=== PATIENT | female | born 1945 | race Caucasian/White ===

== ENCOUNTER 2021-08-18 11:23 | Observation (INO) | payer OTHER, BC ==
--- OUTSIDE RECORDS SUMMARY | 2021-08-18 11:34 | XMS REPORT | Continuity of Care Document ---
:1945 Author Organization [facility] t Address [address] [place] [address] Care Team Providers Name Role Phone PACO ESTUARDO Primary Care Physician Unavailable Daphne ROJAS, L Attending Clinician Erika ESCOBAR Attending Clinician Unavailable Payers Payer Name Policy Type Policy Number Effective Date Expiration Date S ource Problems Condition Condition Condition Status Onset Resolution Last Treating Co mments Source Name Details Category Date Date Treatment Clinician Date Obesity Obesity Disease Active Univers (BMI (BMI 6-02 ity of 30-39.9) 30-39.9) 00:00: Medical [employer] Right knee Right knee Disease Active U nivers pain pain 2-22 ity of 00:00: Medical Branch Allergies, Adverse Reactions, Alerts Allergy Allergy Status Severity Reaction(s) Onset Inactive Treating Comm ents Source Name Type Date Date Clinician ACETAMIN DRUG Active High Other-Cmnt 2020-08 Univ ers OPHEN INGREDI 0-11 ity of 00:00: [place] 00 Medical Branch Acetamin Propensi Active Other - See 2020-08 enlarges t Univers ophen ty to comments 0-11 Liver ity of adverse 00:00: [place] reaction 00 Medical s Branch IRON DRUG Active Hives Univers INGREDI 2-16 ity of 00:00: [place] 00 Medical Branch Iron Propensi Active Hives Univers ty to 2-16 ity of adverse 00:00: [place] reaction 00 Medical s Branch Social History Social Habit Start Date Stop Date Quantity Comments Source Exposure to Not sure [facility] SARS-CoV-2 (event) Medica l Branch Tobacco use and 2016-10-18 2016-10-18 Never used Applyful tad [facility] exposure 00:00:00 00:00:00 Medical Branch Sex [birth year] Univers tad [facility] 00:00:00 00:00:00 Medical Branch Smoking Status Start Date Stop Date Source Never smoker [facility] Branch Medications Ordered Filled Start Stop Current Ordering Indication Dosage Frequency Signature Comments Components Source Medication Medication Date Date Medication? Clinician (SIG) Name Name methylPREDN 2020-08 Yes [id number] 84mg Take 21 Univers ISolone 1-08 tablets by ity of (MEDROL, 00:00: mouth [place] ROD,) 4 mg 00 SEE-INSTRU Med ical tablets CTIONS. Branch follow package directions methylPREDN 2020-08 Yes [id number] 84mg Take 21 Univers ISolone 1-08 tablets by ity of (MEDROL, 00:00: mouth [place] ROD,) 4 mg 00 SEE-INSTRU Med ical tablets CTIONS. Branch follow package directions Diclofenac 2020-08 Yes [id number] Apply to Univers Sodium 0-11 area(s) 4 ity of (VOLTAREN) 00:00: (four) [place] 1 % gel 00 times Medical daily. Branch Diclofenac 2020-08 Yes [id number] Apply to Univers Sodium 0-11 area(s) 4 ity of (VOLTAREN) 00:00: (four) [place] 1 % gel 00 times Medical daily. Branch CYANOCOBALA Yes Inject as Univers MIN, 6-14 directed. ity of VITAMIN 13:44: [place] B-12, (B-12 32 Medical KIT Branch INJECTION) acetaminoph Yes 1{tbl} Take 1 Un kiesha en-codeine 6-14 tablet by ity of 300-30 mg 13:44: mouth [place] tablet 32 every 4 Medical (four) Branch hours as needed. CYANOCOBALA Yes Inject as Univers MIN, 6-14 directed. ity of VITAMIN 13:44: [place] B-12, (B-12 32 Medical KIT Branch INJECTION) acetaminoph Yes 1{tbl} Take 1 Un kiesha en-codeine 6-14 tablet by ity of 300-30 mg 13:44: mouth [place] tablet 32 every 4 Medical (four) Branch hours as needed. acetaminoph Yes 1{tbl} Take 1 Un kiesha en-codeine 6-02 tablet by ity of (TYLENOL-CO 00:00: mouth [place] DEINE #3) 00 every 6 Medical 300-30 mg (six) Branch tablet hours as needed for Pain (scale 4-6) (for cough). acetaminoph 2016-0 Yes 1{tbl} Take 1 Un kiesha en-codeine 6-02 tablet by ity of (TYLENOL-CO 00:00: mouth [place] DEINE #3) 00 every 6 Medical 300-30 mg (six) Branch tablet hours as needed for Pain (scale 4-6) (for cough). diclofenac 2016- Yes 75mg Take 1 Unive rs 75 mg EC 5-16 tablet by ity of tablet 00:00: mouth 2 (two) Medical times [employer] daily with meals. diclofenac 2017-0 Yes 75mg Take 1 Unive rs 75 mg EC 5-16 tablet by ity of tablet 00:00: mouth 2 [place] (two) [facility] times [employer] daily with meals. Vital Signs Vital Name Observation Time Observation Value Comments Source Body height 2021-07-18 20:15:00 160 cm [facility] Body weight 2021-07-18 20:15:00 91.173 kg [facility] BMI 2021-07-18 20:15:00 35.61 kg/m2 [facility] Procedures This patient has no known procedures. Encounters Start End Encounter Admission Attending Care Care Encounter Source Date/Time Date/Time Type Type Clinicians Facility Department ID 2021-07-18 2021-07-18 Office Daphne [facility] [id number] [facility] 14:15:00 14:44:23 Visit Victor M [facility] [id number] it y of JAYDA [id number] Lionel as HOMER?BLEA [id number] [address] MEDICAL OFFICE BUILDING 2021-07-18 2021-07-18 Outpatient R DAPHNE [facility] [id number] Univers 14:15:00 14:44:23 VICTOR M tad [facility] Results This patient has no known results.
[2021-08-18] MEDS ORDERED: DIAZEPAM 10 MG/2 ML INJ SYRINGE ONE (12:41)
[2021-08-18] MEDS ORDERED: ONDANSETRON 4 MG/2 ML VIAL ONE ×2 (12:41→13:41)
[2021-08-18 13:32] LABS: Absolute Lymphocytes (CBC) 1.1 K/uL (0.7-4.9); Basophils % 0.7 % (0-1.3); Lymphocytes % 11.9 % (15.3-44.8); MPV 9.2 fL (7.6-11.3); Protime INR 0.93; RBC Red Blood Cell Count 4.31 M/uL (3.86-4.86)
[2021-08-18 13:48] LABS: ALT/SGPT 31 U/L (12-78); AST/SGOT 18 U/L (15-37); Albumin 3.8 g/dL (3.4-5.0); Alkaline Phosphatase 123 U/L (45-117); BUN Blood Urea Nitrogen 11 mg/dL (7-18); Bicarbonate 28 mmol/L (21-32); Bilirubin Direct < 0.1 mg/dL (0-0.2); Bilirubin Total 0.3 mg/dL (0.2-1.0); Glucose Level 110 mg/dL (74-106); Magnesium 2.4 mg/dL (1.8-2.4); NT PRO-BNP 67 pg/mL (<125); Potassium 3.8 mmol/L (3.5-5.1); Protein, Total 8.1 g/dL (6.4-8.2); Sodium Level 140 mmol/L (136-145); Troponin (Emerg Dept Use Only) < 0.02 ng/mL (0.0-0.045)
--- NOTE | 2021-08-18 14:36 | RAD REPORT ---
EXAM DESCRIPTION: Isaías Single View08/18/2021 1:37 pm CLINICAL HISTORY: Dizziness COMPARISON: none FINDINGS: The lungs appear clear of acute infiltrate. The heart is normal size IMPRESSION: No acute abnormalities displayed
--- NOTE | 2021-08-18 14:47 | RAD REPORT ---
EXAM DESCRIPTION: CT - Head Brain Wo Cont - 08/18/2021 2:28 pm CLINICAL HISTORY: Dizziness COMPARISON: None. TECHNIQUE: Computed axial tomography of the head was obtained. IV contrast was not requested. All CT scans are performed using dose optimization technique as appropriate and may include automated exposure control or mA/KV adjustment according to patient size. FINDINGS: An intracranial bleed is not seen . The ventricles are normal in caliber. No extra-axial fluid collection is noted. Fluid within the sphenoid sinus IMPRESSION: No acute intracranial abnormality is seen. If patient's symptoms persist MRI of the bra in would be recommended. Fluid within the sphenoid sinus may indicate an acute sinusitis
--- NOTE | 2021-08-18 15:22 | RAD REPORT ---
EXAM DESCRIPTION: MRI - Brain W/Wo Cont - 08/18/2021 2:53 pm CLINICAL HISTORY: Dizziness COMPARISON: head CT August 17, 2021 TECHNIQUE: Axial, sagittal, and coronal magnetic images of the brain were obtained. 20 cc MultiHance administered intravenously FINDINGS: Very small area of abnormal signal right cerebellum is chronic. No significant abnormal si gnal within the brain. The ventricles are normal in caliber. Diffusion-weighted/ ADC mapping sequences do not demonstrate evidence of an acute infarction. No abnormal enhancement within the brain is seen. An extra-axial fluid collection is not noted. Fluid within the sinuses/mastoids is not seen. Mild mucoperiosteal thickening involves the sinuses IMPRESSION: No acute intracranial abnormality displayed
[2021-08-18] MEDS ORDERED: MECLIZINE HCL 12.5 MG TAB ONE (15:57)
[2021-08-18] MEDS ORDERED: IBUPROFEN 200 MG TAB PO ONE (16:32)
--- NOTE | 2021-08-18 18:54 | ER ---
Nurse's Notes [facility] Name: Saranya Reid Age: 75 yrs Sex: Female : 1945 Arrival Date: 08/18/2021 Time: 11:27 Bed 16 Private MD: Diagnosis: Weakness;Dizziness and giddiness Presentation: 08/18 12:00 Chief complaint: Patient states: Dizziness that began last night with nausea. Pt states ss that it appears as if the room is spinning. Coronavirus screen: Client denies travel out of the [place] in the last 14 days. Ebola Screen: Patient denies exposure to infectious person. Patient denies travel to an Ebola-affected area in the 21 days before illness onset. Initial Sepsis Screen: Does the patient meet any 2 criteria? No. Patient's initial sepsis screen is negative. Does the patient have a suspected source of infection? No. Patient's initial sepsis screen is negative. Risk Assessment: Do you want to hurt yourself or someone else? Patient reports no desire to harm self or others. Onset of symptoms was August 17, 2021. 12:00 Method Of Arrival: Wheelchair ss 12:00 Acuity: ADAMARIS 3 ss Historical: - Allergies: 12:03 Interferons; ss - PMHx: 12:03 Cataract; TIA; ss - PSHx: 12:03 Tonsillectomy; Hysterectomy; Cholecystectomy; Knee repair; ss - Immunization history:: Client reports receiving the 2nd dose of the Covid vaccine. - Social history:: Smoking status: Patient denies any tobacco usage or history of. Screenin:50 Abuse screen: Denies threats or abuse. Nutritional screening: No deficits noted. eo2 Tuberculosis screening: No symptoms or risk factors identified. Fall Risk Fall in past 12 months (25 points). Assessment: 12:30 Reassessment: Pt states she is unable to tolerate laying position for CT and/or MRI. ss 13:47 General: Appears in no apparent distress. comfortable, Behavior is calm, cooperative, eo2 Reports heard of hearing. Pain:. 13:47 Neuro: Level of Consciousness is awake, alert, obeys commands, Oriented to person, eo2 place, time, situation, Reports dizziness, since last night, associated with nausea, denies headache. Cardiovascular: Reports "chest pressure" since she's been in the ER, states "I don't have chest pain" Respiratory: No deficits noted. Denies shortness of breath. GI: Bowel sounds present X 4 quads. Reports nausea, Patient currently denies vomiting. 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 Pt otherwise able to move all extremities. 15:07 Reassessment: Pt reports worsened nausea due to movement while at MRI, now reports eo2 Headache 6/10, states she hasn't had her coffee today, also reports worsening "chest pressure" states "feels like someone's sitting on my chest". Will make provider aware. Patient states symptoms have not improved. 15:13 Reassessment: Spoke with Dr. Hinson about pt's complaints, provider to review results, eo2 no new orders at this time. 15:30 Reassessment: Dr. Hinson at bedside. eo2 18:00 Reassessment: Walk pt per Dr. Hinson, pt reports headache "went away but came back". eo2 18:53 Reassessment: Pt ambulated, noted with unsteady gait, stumbled several times, voiced eo2 feeling off balance, and that gait is not her baseline. Pt verbalized she does not want to go to "[facility]" for admission, Dr. Hinson came to bedside to witness pt ambulate, similar episodes of imbalance upon ambulation. Pt reports ongoing headache, desires to have coffee and eat. Vital Signs: 12:00 BP 160 / 69; Pulse 64; Resp 15; Temp 98.0(TE); Pulse Ox 100% on R/A; Weight 88.45 kg; ss Height 5 ft. 3 in. (160.02 cm); Pain 0/10; 14:07 BP 147 / 94; Pulse 63; Resp 17; Pulse Ox 100% ; Pain 0/10; eo2 15:00 BP 132 / 64; Pulse 63; Resp 15; Pulse Ox 97% ; Pain 6/10; eo2 16:00 BP 149 / 63; Pulse 62; Resp 15; Pulse Ox 97% ; eo2 17:00 BP 147 / 70; Pulse 61; Resp 16; Pulse Ox 97% ; eo2 18:00 BP 146 / 66; Pulse 62; Resp 14; Pulse Ox 100% ; Pain 6/10; eo2 18:07 Pain 5/10; eo2 20:00 BP 125 / 58; Pulse 61; Resp 18; Pulse Ox 99% on R/A; mk 21:00 BP 119 / 51; Pulse 62; Resp 18; Pulse Ox 97% on R/A; mk 12:00 Body Mass Index 34.54 (88.45 kg, 160.02 cm) Vitals: 20:00 Cardiac Rhythm Assessment Regular Sinus rhythm. mk Daniele Coma Score: 20:00 Eye Response: spontaneous(4). Verbal Response: oriented(5). Motor Response: obeys mk commands(6). Total: 15. 21:00 Eye Response: spontaneous(4). Verbal Response: oriented(5). Motor Response: obeys mk commands(6). Total: 15. ED Course: 11:27 Patient arrived in ED. ds1 12:03 Triage completed. ss 12:03 Arm band placed on right wrist. ss 12:05 Chris Hinson MD is Attending Physician. kdr 13:02 Ashley Dia RN is Primary Nurse. eo2 13:37 XRAY Chest (1 view) In Process Unspecified. EDMS 13:50 Patient has correct armband on for positive identification. Placed in gown. Bed in low eo2 position. Call light in reach. Side rails up X 1. Adult w/ patient. campus monitor on. Pulse ox on. NIBP on. Door closed. Noise minimized. Warm blanket given. 13:50 No provider procedures requiring assistance completed. Missed attempt(s): 20 gauge pt eo2 difficult stick, multiple missed attempts, blood collected and drawn from 20g R.AC initially placed but removed as pt reports pain with attempts to flush and line is difficult to flush. 14:07 Inserted saline lock: 20 gauge in right antecubital area, using aseptic technique. eo2 14:[address] Patient moved to MRI via stretcher. eo2 14:28 CT Head Brain wo Cont In Process Unspecified. EDMS 14:46 MRI - Brain W/Wo Cont In Process Unspecified. EDMS 15:01 Patient moved back from MRI. eo2 18:53 Robert Caballero MD is Hospitalizing Provider. kdr 19:10 Report given to Yuko SOLANO. eo2 20:30 Primary Nurse role handed off by Ashley DiaRUSS cs9 20:44 Yuko Vanegas, RUSS is Primary Nurse. 21:49 Patient admitted, IV remains in place. 21:50 RN/PIPE LINE REPAIRER escort patient out of department to inpatient unit. mk Administered Medications: 14:15 Drug: Zofran (Ondansetron) 4 mg Route: IVP; Site: right antecubital; eo2 15:11 Follow up: Response: Nausea is increased eo2 14:15 Drug: Valium (diazepam) 2.5 mg {Note: Per Dr. Hinson, administer 2.5mg Valium, pt eo2 reported claustrophobic for MRI.} Route: IVP; Site: right antecubital; 15:11 Follow up: Response: No adverse reaction eo2 16:09 Drug: Meclizine 25 mg Route: PO; eo2 17:00 Follow up: Response: No adverse reaction eo2 16:33 Drug: Ibuprofen 600 mg Route: PO; ss 18:07 Follow up: Pain 5/10; Response: No adverse reaction eo2 Outcome: 18:53 Decision to Hospitalize by Provider. kdr 21:49 Admitted to Tele 21:49 Condition: good 21:49 Condition: stable 21:49 Instructed on the need for admit. 21:50 Patient left the ED. Signatures: Dispatcher [employer] EDMS Chris Hinson MD MD kdr Sanford, Demi ds1 Melissa Riojas RN RN ss Stanford, Christine cs9 Ashley Dia RN RN eo2 Yuko Vanegas RN RN mk Corrections: (The following items were deleted from the chart) 12:05 12:03 Allergies: Infrom; ss ss 14:30 13:50 Missed attempt(s): 20 gauge pt difficult stick, multiple missed attempts. eo2 eo2 16:35 12:00 BP 160 / 69; Pulse 64bpm; Resp 15bpm; Pulse Ox 100% RA; 88.45 kg; Height 5 ft. 3 ss in.; BMI: 34.5; Pain 0/10; ss 18:07 17:33 Pain 5/10 Adult eo2 eo2
--- NOTE | 2021-08-18 18:54 | EDPHYS ---
Physician Documentation [facility] Name: Saranya Reid Age: 75 yrs Sex: Female : 1945 Arrival Date: 08/18/2021 Time: 11:27 Bed 16 Private MD: ED Physician Chris Hinson HPI: 08/18 18:53 This 75 yrs old Female presents to ER via Wheelchair with complaints of Dizziness, kdr Lightheaded. 17:52 The patient presents with dizziness, generalized weakness, feeling off balance, sense kdr of spinning, vertigo. Onset: The symptoms/episode began/occurred last night. Context: occurred at home, Patient states that she woke up at night with dizziness and then went back to sleep and when she woke up again she was still dizzy. She remained dizzy throughout the day. The dizziness is worse when she lays flat on her back. Otherwise she is able to get comfortable and minimize the dizziness when she is sitting up slightly reclined. Modifying factors: The symptoms are alleviated by closing eyes, holding head still, the symptoms are aggravated by changing position, Laying flat on her back. Associated signs and symptoms: Pertinent positives: chest pain, headache, nausea, vomiting. Severity of symptoms: At their worst the symptoms were moderate incapacitating in the emergency department the symptoms are unchanged. Patient's baseline: Neuro: alert and fully oriented, Motor: no deficits, Ambulation: walks without assistance, Speech: normal, The patient has a previous history of TIA. The patient has not experienced similar symptoms in the past. The patient has not recently seen a physician. Right foot presents to the ED with dizziness and nausea that began last evening. She has not had this kind of dizziness before. She is otherwise been her usual state of health.. Historical: - Allergies: 12:03 Interferons; ss - PMHx: 12:03 Cataract; TIA; ss - PSHx: 12:03 Tonsillectomy; Hysterectomy; Cholecystectomy; Knee repair; ss - Immunization history:: Client reports receiving the 2nd dose of the Covid vaccine. - Social history:: Smoking status: Patient denies any tobacco usage or history of. ROS: 17:52 Constitutional: Negative for fever, chills, and weight loss, Eyes: Negative for injury, kdr pain, redness, and discharge, ENT: Negative for injury, pain, and discharge, Neck: Negative for injury, pain, and swelling, Cardiovascular: Negative for chest pain, palpitations, and edema, Respiratory: Negative for shortness of breath, cough, wheezing, and pleuritic chest pain, Abdomen/GI: Negative for abdominal pain, nausea, vomiting, diarrhea, and constipation, Back: Negative for injury and pain, : Negative for injury, bleeding, discharge, and swelling, MS/Extremity: Negative for injury and deformity, Skin: Negative for injury, rash, and discoloration, Psych: Negative for depression, anxiety, suicide ideation, homicidal ideation, and hallucinations, Allergy/Immunology: Negative for hives, rash, and allergies, Endocrine: Negative for neck swelling, polydipsia, polyuria, polyphagia, and marked weight changes, Hematologic/Lymphatic: Negative for swollen nodes, abnormal bleeding, and unusual bruising. 17:52 Neuro: Positive for dizziness, headache, Negative for altered mental status, gait disturbance, hearing loss, loss of consciousness, numbness, seizure activity, speech changes, syncope, near syncope, tingling. Exam: 17:52 Constitutional: This is a well developed, well nourished patient who is awake, alert, kdr and in no acute distress. Head/Face: Normocephalic, atraumatic. Eyes: Pupils equal round and reactive to light, extra-ocular motions intact. Lids and lashes normal. Conjunctiva and sclera are non-icteric and not injected. Cornea within normal limits. Periorbital areas with no swelling, redness, or edema. Neck: Trachea midline, no thyromegaly or masses palpated, and no cervical lymphadenopathy. Supple, full range of motion without nuchal rigidity, or vertebral point tenderness. No Meningismus. Chest/axilla: Normal chest wall appearance and motion. Nontender with no deformity. No lesions are appreciated. Cardiovascular: Regular rate and rhythm with a normal S1 and S2. No gallops, murmurs, or rubs. Normal PMI, no JVD. No pulse deficits. Respiratory: Lungs have equal breath sounds bilaterally, clear to auscultation and percussion. No rales, rhonchi or wheezes noted. No increased work of breathing, no retractions or nasal flaring. Abdomen/GI: Soft, non-tender, with normal bowel sounds. No distension or tympany. No guarding or rebound. No evidence of tenderness throughout. Back: No spinal tenderness. No costovertebral tenderness. Full range of motion. Skin: Warm, dry with normal turgor. Normal color with no rashes, no lesions, and no evidence of cellulitis. MS/ Extremity: Pulses equal, no cyanosis. Neurovascular intact. Full, normal range of motion. Neuro: Awake and alert, GCS 15, oriented to person, place, time, and situation. Cranial nerves II-XII grossly intact. Motor strength 5/5 in all extremities. Sensory grossly intact. Cerebellar exam normal. Normal gait. Psych: Awake, alert, with orientation to person, place and time. Behavior, mood, and affect are within normal limits. 18:13 ECG was reviewed by the Attending Physician. kdr Vital Signs: 12:00 BP 160 / 69; Pulse 64; Resp 15; Temp 98.0(TE); Pulse Ox 100% on R/A; Weight 88.45 kg; ss Height 5 ft. 3 in. (160.02 cm); Pain 0/10; 14:07 BP 147 / 94; Pulse 63; Resp 17; Pulse Ox 100% ; Pain 0/10; eo2 15:00 BP 132 / 64; Pulse 63; Resp 15; Pulse Ox 97% ; Pain 6/10; eo2 16:00 BP 149 / 63; Pulse 62; Resp 15; Pulse Ox 97% ; eo2 17:00 BP 147 / 70; Pulse 61; Resp 16; Pulse Ox 97% ; eo2 18:00 BP 146 / 66; Pulse 62; Resp 14; Pulse Ox 100% ; Pain 6/10; eo2 18:07 Pain 5/10; eo2 20:00 BP 125 / 58; Pulse 61; Resp 18; Pulse Ox 99% on R/A; mk 21:00 BP 119 / 51; Pulse 62; Resp 18; Pulse Ox 97% on R/A; mk 12:00 Body Mass Index 34.54 (88.45 kg, 160.02 cm) ss [place] Coma Score: 20:00 Eye Response: spontaneous(4). Verbal Response: oriented(5). Motor Response: obeys mk commands(6). Total: 15. 21:00 Eye Response: spontaneous(4). Verbal Response: oriented(5). Motor Response: obeys mk commands(6). Total: 15. MDM: 17:52 Data reviewed: vital signs, nurses notes, lab test result(s), radiologic studies. kdr Counseling: I had a detailed discussion with the patient and/or guardian regarding: the historical points, exam findings, and any diagnostic results supporting the discharge/admit diagnosis, lab results, radiology results, the need for outpatient follow up. 17:57 ED course: Patient was stable in the ED. With the initial dosing of Valium (2-1/2 mg kdr IV), she became very sedated. The patient was then given meclizine 25 mg. Patient manages that well. She still remained dizzy. She also has slight headache with the dizziness. I discussed all results with the daughter who was present. We discussed the central versus peripheral dizziness and labyrinthitis versus CVA.. 18:53 Patient medically screened. [facility] 08/18 13:09 Order name: Basic Metabolic Panel; Complete Time: 15:25 [facility] 08/18 13:09 Order name: CBC with Diff; Complete Time: 15:25 [facility] 08/18 13:09 Order name: LFT's; Complete Time: 15:25 [facility] 08/18 13:09 Order name: Magnesium; Complete Time: 15:25 [facility] 08/18 13:09 Order name: NT PRO-BNP; Complete Time: 15:25 [facility] 08/18 13:09 Order name: PT-INR; Complete Time: 15:25 [facility] 08/18 12:11 Order name: CT Head Brain wo Cont; Complete Time: 15:25 08/18 12:11 Order name: MRI - Brain W/Wo Cont; Complete Time: 15:25 08/18 13:09 Order name: Troponin (emerg Dept Use Only); Complete Time: 15:25 [facility] 08/18 13:09 Order name: XRAY Chest (1 view); Complete Time: 15:25 [facility] 08/18 17:51 Order name: Troponin (emerg Dept Use Only); Complete Time: 00:08 [facility] 08/18 13:09 Order name: EKG; Complete Time: 13:10 [facility] 08/18 13:09 Order name: Cardiac monitoring; Complete Time: 13:34 [facility] 08/18 13:09 Order name: EKG - Nurse/Tech; Complete Time: 14:30 [facility] 08/18 13:09 Order name: IV Saline Lock; Complete Time: 13:34 kdr 08/18 13:09 Order name: Labs collected and sent; Complete Time: 13:34 kdr 08/18 13:09 Order name: O2 Per Protocol; Complete Time: :34 kdr 08/18 13:09 Order name: O2 Sat Monitoring; Complete Time: 13:34 kdr EC:13 Rate is 62 beats/min. Rhythm is regular, Sinus Rhythm with No ectopy. QRS [place] is kdr Normal. AR interval is normal. QRS interval is normal. QT interval is normal. Clinical impression: NSR w/ Non-specific ST/T Changes. Administered Medications: 14:15 Drug: Zofran (Ondansetron) 4 mg Route: IVP; Site: right antecubital; eo2 15:11 Follow up: Response: Nausea is increased eo2 14:15 Drug: Valium (diazepam) 2.5 mg {Note: Per Dr. Hinson, administer 2.5mg Valium, pt eo2 reported claustrophobic for MRI.} Route: IVP; Site: right antecubital; 15:11 Follow up: Response: No adverse reaction eo2 16:09 Drug: Meclizine 25 mg Route: PO; eo2 17:00 Follow up: Response: No adverse reaction eo2 16:33 Drug: Ibuprofen 600 mg Route: PO; ss 18:07 Follow up: Pain 5/10; Response: No adverse reaction eo2 Disposition Summary: 08/18/21 18:53 Hospitalization Ordered Hospitalization Status: Observation kdr Provider: Robert Caballero Location: Telemetry/MedSurg (observation) kdr Condition: Fair kdr Problem: new kdr Symptoms: have improved kdr Bed/Room Type: Standard [facility] Room Assignment: 202(08/18/21 21:12) Diagnosis - Weakness kdr - Dizziness and giddiness kdr Discharge Instructions: - Discharge Summary Sheet kdr - Vertigo, [id number] kdr - Dizziness, [id number] kdr Forms: - Medication Reconciliation Form kdr - SBAR form kdr Prescriptions: - Meclizine 25 mg Oral Tablet - take 1 tablet by ORAL route every 8 hours As needed; 30 tablet; Refills: 0, kdr Product Selection Permitted - Zofran 4 mg Oral Tablet - take 1 tablet by ORAL route every 4-6 hours As needed; 12 tablet; Refills: 0, kdr Product Selection Permitted Signatures: Dis[facility] Chris Egan MD MD kdr Melissa Riojas RN RN ss Kizzy, Tristian, INVAS TECH-C INVAS TECH-Cla1 Greta Branham RN RN cg Ashley Dia RN RN eo2 Corrections: (The following items were deleted from the chart) 12:05 12:03 Allergies: Infrom; ss 21:12 18:53 elza
--- NOTE | 2021-08-18 19:30 | P.HP ---
Certification for Inpatient Patient admitted to: Observation With expected LOS: <2 Midnights Patient will require the following post-hospital care: None Practitioner: I am a practitioner with admitting privileges, knowledge of patient current condition, hospital course, and medical plan of care. Services: Services provided to patient in accordance with Admission requirements found in Title 42 Section 412.3 of the Code of Federal Regulations Patient History Date of Service: 08/18/21 Primary Care Provider: Grace Mcwilliams Reason for admission: Chest pain History of Present Illness: 75-year-old female with no significant past medical history presents emergency department for dizziness. Patient reports a sensation of room spinning since last night. Patient unsteady on feet reports nausea and vomiting as well at home. Patient was evaluated in the emergency department with CT head brain without contrast as well as MRI brain without contrast which were negative for any acute findings or signs of stroke. Patient was given Antivert as well as Valium and initially symptoms did improve slightly but returned. Patient was unable to ambulate without significant out of assistance and also began complaining of chest pressure during her emergency department evaluation. Initial troponin negative EKG without acute changes. Given chest pressure and ongoing dizziness/fall risk ED provider wishes to admit to observation. Allergies Interferons Allergy (Verified 12/11/16 08:03) Hives Home Medications: Cyanocobalamin [Vitamin B-12*] 1,000 mcg IM ONCE 11/09/16 Besifloxacin HCl [Besivance] 5 ml LEFT EYE DAILY 12/07/16 Bromfenac Sodium [Bromsite] 5 ml LEFT EYE DAILY 12/07/16 Difluprednate [Durezol 0.05%] 1 drops LEFT EYE DAILY 12/07/16 - Past Medical/Surgical History -: TIA -: Cataracts -: Hysterectomy -: Cholecystectomy -: Cataract surgery Psychosocial/ Personal History: patient is retired and lives at home with her daughter - Family History Father -: Heart disease, Diabetes Mother -: Heart disease, Diabetes - Social History Smoking Status: Never smoker Alcohol use: No CD- Drugs: No Caffeine use: Yes Place of Residence: Home Review of Systems 10-point ROS is otherwise unremarkable Cardiovascular: Chest Pain, As per HPI Neurological: Other (Dizzinessroom spinning) Physical Examination - Physical Exam General: Alert, In no apparent distress, Oriented x3 HEENT: Atraumatic, PERRLA, Mucous membr. moist/pink, EOMI, Sclerae nonicteric Neck: Supple, 2+ carotid pulse no bruit, No LAD, Without JVD or thyroid abnormality Respiratory: Clear to auscultation bilaterally, Normal air movement Cardiovascular: Regular rate/rhythm, Normal S1 S2 Gastrointestinal: Normal bowel sounds, No tenderness Musculoskeletal: No tenderness Integumentary: No rashes Neurological: Normal gait, Normal speech, Normal strength at 5/5 x4 extr, Normal tone, Normal affect, Other (The few beats of left beating nystagmus noted) Lymphatics: No axilla or inguinal lymphadenopathy - Studies Laboratory Data (last 24 hrs) 08/18/21 13:17: PT 10.7, INR 0.93 08/18/21 13:17: WBC 9.50, Hgb 12.3, Hct 39.0, Plt Count 223 08/18/21 13:17: Sodium 140, Potassium 3.8, BUN 11, Creatinine 0.66, Glucose 110 H, Magnesium 2.4, Total Bilirubin 0.3, AST 18, ALT 31, Alkaline Phosphatase 123 H Assessment and Plan - Plan Assessment: Chest pain rule out ACS Dizziness/unsteady gait suspect BPPV Plan: Chest pain rule out ACS: Trend troponin, monitor on telemetry, daily aspirin, cardiology consulted. Will obtain lipid panel. Patient denies ever having previous stress test, heart cath or echocardiogram. Appreciate further input from cardiology. Dizziness/unsteady gait suspect BPPV: PRN meclizine, physical therapy evaluation in the morning. Fall precautions. DVT PPX: Lovenox Code status: Full Discharge Plan: Home Plan to discharge in: 24 Hours - Advance Directives Does patient have a Living Will: No Does patient have a Durable POA for Healthcare: No - Code Status/Comfort Care Code Status Assessed: Yes (Full code) Critical Care: No Time Spent Managing Pts Care (In Minutes): 55
[2021-08-18] MEDS ORDERED: MECLIZINE HCL 12.5 MG TAB PO PRN (22:20)
[2021-08-18] MEDS ORDERED: ONDANSETRON 4 MG/2 ML VIAL IV PRN (22:20)
[2021-08-18 22:26] VITALS: O2SAT 97
[2021-08-18] MEDS ORDERED: ACETAMINOPHEN 500 MG TAB PO PRN (22:28)
[2021-08-18] MEDS ORDERED: TRAMADOL HCL 50 MG TAB PO ONE (22:50)
[2021-08-19 01:05] VITALS: BMI 34.9
[2021-08-19 06:11] LABS: Absolute Lymphocytes (CBC) 1.5 K/uL (0.7-4.9); Basophils % 0.9 % (0-1.3); Hematocrit 34.9 % (36.0-45.0); Lymphocytes % 28.3 % (15.3-44.8); RBC Red Blood Cell Count 3.82 M/uL (3.86-4.86)
[2021-08-19 06:33] LABS: ALT/SGPT 27 U/L (12-78); AST/SGOT 18 U/L (15-37); Albumin 3.3 g/dL (3.4-5.0); Alkaline Phosphatase 110 U/L (45-117); BUN Blood Urea Nitrogen 19 mg/dL (7-18); Bicarbonate 27 mmol/L (21-32); Bilirubin Total 0.4 mg/dL (0.2-1.0); Glucose Level 122 mg/dL (74-106); HDL Cholesterol 30 mg/dL (40-60); LDL Cholesterol, Calculated 136 (<130); Magnesium 2.7 mg/dL (1.8-2.4); Potassium 3.9 mmol/L (3.5-5.1); Protein, Total 6.9 g/dL (6.4-8.2); Sodium Level 140 mmol/L (136-145); Troponin I < 0.02 ng/mL (0.0-0.045)
[2021-08-19] MEDS ORDERED: ENOXAPARIN 40 MG/0.4 ML SQ SCH (09:00)
[2021-08-19] MEDS ORDERED: ASPIRIN EC 81 MG TAB PO SCH (09:00)
[2021-08-19 14:01] VITALS: BP 134/64; TEMP 98.3
--- NOTE | 2021-08-19 16:30 | P.DS ---
Admission Date: 08/18/21 Discharge Date: 08/19/21 Primary Care Provider: Grace Mcwilliams Disposition: ROUTINE DISCHARGE Discharge Condition: GOOD Reason for Admission: Vertigo, chest pain Procedures: CT head (08/18): FINDINGS: An intracranial bleed is not seen . The ventricles are normal in caliber. No extra-axial fluid collection is noted. Fluid within the sphenoid sinus IMPRESSION: No acute intracranial abnormality is seen. If patient's symptoms persist MRI of the brain would be recommended. Fluid within the sphenoid sinus may indicate an acute sinusitis MRI (08/18): FINDINGS: Very small area of abnormal signal right cerebellum is chronic. No significant abnormal signal within the brain. The ventricles are normal in caliber. Diffusion-weighted/ ADC mapping sequences do not demonstrate evidence of an acute infarction. No abnormal enhancement within the brain is seen. An extra-axial fluid collection is not noted. Fluid within the sinuses/mastoids is not seen. 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 Patient reports a sensation of room spinning since last night. Patient unsteady on feet reports nausea and vomiting as well at home. Patient was evaluated in the emergency department with CT head brain without contrast as well as MRI brain without contrast which were negative for any acute findings or signs of stroke. Patient was given Antivert as well as Valium and initially symptoms did improve slightly but returned. Patient was unable to ambulate without significant out of assistance and also began complaining of chest pressure during her emergency department evaluation. Initial troponin negative EKG without acute changes. Given chest pressure and ongoing dizziness/fall risk ED provider wishes to admit to observation. Hospital Course: Patient's history and exam most consistent with BPPV. Physical therapy was consulted, patient had a positive left sided Davion-Hallpike maneuver, and did well with Alex maneuvers. She continued to have some intermittent dizziness but overall is doing better. She is able to ambulate 500 feet with physical therapy without issue. She was shown how to perform Alex maneuvers. Prescribed meclizine on discharge. Follow-up with PCP within 1 week, and continue physical therapy exercises as demonstrated. Chest discomfort was evaluated by EKG, chest x-ray, and serial cardiac enzyme levels. All of these were negative/normal, effectively ruling out acute coronary syndrome. Patient has an appointment with a technical applications specialist this coming week as part of cardiac clearance prior to knee surgery. Vital Signs/Physical Exam: Temp Pulse Resp BP Pulse Ox 98.3 F 62 20 134/64 95 08/19/21 12:00 08/19/21 12:00 08/19/21 12:00 08/19/21 12:00 08/19/21 12:00 General: Alert, In no apparent distress, Oriented x3 HEENT: EOMI, Sclerae nonicteric Neck: No LAD Respiratory: Clear to auscultation bilaterally, Normal air movement Cardiovascular: No edema, Regular rate/rhythm Gastrointestinal: Soft and benign, Non-distended, No tenderness Musculoskeletal: No tenderness Integumentary: No significant lesion Neurological: Normal speech, Normal strength at 5/5 x4 extr, Cranial nerves 3-12 intact, Normal affect, Other (Positive Corona-Hallpike, with nystagmus) Laboratory Data at Discharge: WBC 5.30 K/uL (4.3-10.9) D 08/19/21 05:40 Hgb 11.0 g/dL (12.0-15.0) L 08/19/21 05:40 Hct 34.9 % (36.0-45.0) L 08/19/21 05:40 Plt Count 203 K/uL (152-406) 08/19/21 05:40 PT 10.7 SECONDS (9.5-12.5) 08/18/21 13:17 INR 0.93 08/18/21 13:17 Sodium 140 mmol/L (136-145) 08/19/21 05:40 Potassium 3.9 mmol/L (3.5-5.1) 08/19/21 05:40 BUN 19 mg/dL (7-18) H 08/19/21 05:40 Creatinine 0.91 mg/dL (0.55-1.3) 08/19/21 05:40 Glucose 122 mg/dL (74-106) H 08/19/21 05:40 Magnesium 2.7 mg/dL (1.8-2.4) H 08/19/21 05:40 Total Bilirubin 0.4 mg/dL (0.2-1.0) 08/19/21 05:40 AST 18 U/L (15-37) 08/19/21 05:40 ALT 27 U/L (12-78) 08/19/21 05:40 Alkaline Phosphatase 110 U/L (45-117) 08/19/21 05:40 Troponin I < 0.02 ng/mL (0.0-0.045) 08/19/21 05:40 Triglycerides 146 mg/dL (<150) 08/19/21 05:40 Cholesterol 195 mg/dL (<200) 08/19/21 05:40 HDL Cholesterol 30 mg/dL (40-60) L 08/19/21 05:40 Cholesterol/HDL Ratio 6.50 08/19/21 05:40 Home Medications: Meclizine HCl 12.5 mg PO Q6H PRN #20 tablet 08/19/21 New Medications: Meclizine HCl 12.5 mg PO Q6H PRN #20 tablet PRN Reason: Dizziness Physician Discharge Instructions: You were evaluated by EKG, cardiac enzymes, CT brain, and MRI brain. All were normal. Your symptoms of dizziness/room spinning is most consistent with a diagnosis of BPPV - benign paroxysmal positional vertigo. Recommend Alex maneuvers as needed - as demonstrated by PT. Recommend meclizine - 12.5mg every 6 hours as needed if symptoms do not improve with alex maneuvers. Ok to take up to 25mg. Follow up with PCP within 1 week Your EKG and troponins (cardiac enzyme) were all normal, effectively ruling out acute coronary syndrome / heart attack. If you have any further episodes, recommend follow up with a Environmental Technical Officer in the office for further evaluation / testing. Diet: Regular Activity: Ad angely Followup: [facility] [Provider Group] Kari Mcwilliams NP [Primary Care Provider] - 1 Week (PCP- call to schedule an appointment ) Time spent managing pt's care (in minutes): 45
== END 2021-08-19 13:26 | disposition home or self-care (01) ==
LOC: ER 11:23 → ERHOLD 19:23 → 2ND 22:07
PROVIDERS: ADMIT Hospitalist; ATTEND Hospitalist
DX: H81.10 Benign paroxysmal vertigo, unspecified ear (principal); R07.89 Other chest pain; H91.92 Unspecified hearing loss, left ear; Z20.822 Contact with and (suspected) exposure to COVID-19
CPT/HCPCS: 93005; 85025 ×2; 80048; 36415; 83735 ×2; 85610; 80061; 80076; 84443; 84484 ×3; 84439; 80053; 83880; 70450; 71045; 70553; 97112 ×2; 97116; 97161; 96375; 96374; 99285; U0003; A9577; J1650; J3360; J2405 ×2; G0378; J8597